=== PATIENT | female | born 1985 | race Asian ===

== ENCOUNTER → 2016-07-30 | Outpatient (CLI) | payer OTHER ==
[~2016-07-30] MED LIST: DOCO1CAP10; OXYC-57 PO; PRENTAB26 PO
[2016-07-30 16:03] LABS: GTGD 50 Grams
[2016-08-03 12:24] LABS: AFP TUMOR MARKER SERUM 56.2 NG/ML (<6.1)
[2016-08-04 13:38] LABS: AFP CONCENTRATION 59.3 NG/ML; AFP MULTIPLE OF MEDIAN 1.76; AFPTS GESTATIONAL AGE 16.4 WEEKS; AFPTS INSULIN DEP DIABETIC? NO; AFPTS MATERNAL WT 153 LBS; HISTORY OF NTD NO; REPEAT SAMPLE? NOT PROVIDED
== END | disposition home or self-care (01) ==
LOC: C.LAB1850 13:54
PROVIDERS: ATTEND Obstetrics & Gynecology
DX: Z34.02 Encounter for supervision of normal first pregnancy, second trimester (principal)

== ENCOUNTER → 2016-08-04 | Outpatient (CLI) | payer OTHER | END | disposition home or self-care (01) | LOC: C.LAB1850 08:36 | PROVIDERS: ATTEND Obstetrics & Gynecology | DX: O28.9 Unspecified abnormal findings on antenatal screening of mother (principal) ==

== ENCOUNTER → 2016-10-19 | Outpatient (CLI) | payer OTHER ==
[2016-10-19 18:28] LABS: URINE APPEARANCE CLEAR (CLEAR); URINE BILIRUBIN NEG (NEG); URINE COLOR YELLOW; URINE EPITHELIAL CELL AUTO >30 /lpf (0-5); URINE NITRITE NEG (NEG); URINE SPECIFIC GRAVITY 1.017 (1.000-1.030); UROBILINOGEN NEG (NEG)
[2016-10-19 18:30] LABS: MANUAL MICROSCOPIC REQUIRED? NO; REVIEW REQ? NO
== END | disposition home or self-care (01) ==
LOC: C.LABSPEC 13:57
PROVIDERS: ATTEND Obstetrics & Gynecology
DX: Z34.03 Encounter for supervision of normal first pregnancy, third trimester (principal)

== ENCOUNTER → 2016-12-16 | Outpatient (CLI) | payer OTHER | END | disposition home or self-care (01) | LOC: C.LABSPEC 15:54 | PROVIDERS: ATTEND Obstetrics & Gynecology | DX: Z34.03 Encounter for supervision of normal first pregnancy, third trimester (principal) ==

== ENCOUNTER → 2016-12-24 | Outpatient (CLI) | payer OTHER ==
[2016-12-24 15:42] LABS: BASO % 0.3 %; BASO ABS # 0.02 K/uL (0-0.2); COMPLETE YES; EOS % 0.4 %; HEMATOCRIT 32.8 % (37-47); IG% 0.3 %; LYMPH % 18.3 %; LYMPH ABS # 1.32 K/uL (1.2-3.4); MEAN CELL VOLUME 86.8 fL (80-100); MEAN CORPUSCULAR HGB CONC 31.1 g/dl (32-36); MEAN PLATELET VOLUME 10.4 fL (7.4-10.4); MONO % 9.6 %; NEUT % 71.1 %; PLATELET COUNT 217 K/uL (130-400); RED BLOOD COUNT 3.78 M/uL (4.2-5.4)
== END | disposition home or self-care (01) ==
LOC: C.LAB1850 14:49
PROVIDERS: ATTEND Obstetrics & Gynecology
DX: O34.29 Maternal care due to uterine scar from other previous surgery (principal)

== ENCOUNTER 2016-12-25 02:52 | Inpatient (IN) | payer OTHER ==
--- NOTE | 2016-12-24 23:42 | History and Physical ---
History & Physical Date Dec 24, 2016. Chief Complaint Scheduled primary section History of Present Illness The patient is a 31yo @ 37 4/7 presenting for scheduled primary section due to history of myomectomy. is complicated by myomectomy 4 weeks prior to gestation. She was recommended by her surgeon to undergo a , and recommendation from [facility] is to deliver by at 37 weeks. also complicated by GDMA1. 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14 in [place] PSH: myomectomy (vertical skin incision) with right ovarian dermoid cystectomy 2015, laparoscopic left oophorectomy Additional History Hepatic Disease: No Endocrine Disorder: No Kidney Disease: No Hypertension: No Heart Disease: No Bleeding Tendencies: No Infectious Diseases: No LMP: 04/06/16 Physical Examination Skin: warm/dry Head: normocephalic Neck: supple Respiratory/Chest: normal breath sounds Cardiovascular: regular rate, rhythm Abdomen / GI: non tender Back: normal inspection Extremities: normal inspection Genitourinary - Female: normal pelvic exam Neurologic/Psych: no motor/sensory deficits Diagnosis 31yo @ 37 4/7 with history of myomectomy Plan of Treatment Plan for primary section. Patient has been counseled in the office on all RBA of surgery, including increased risk of scar tissue and damage to surrounding tissues/organs due to her prior surgeries. She elects to proceed with delivery.
[~2016-12-25] VITALS: Ht 167.6 cm; Wt 84.0 kg
[2016-12-25] VITALS (14 sets, daily range): BP systolic 109–124; BP diastolic 70–77; PULSE 94–96; TEMP 37.3–37.5; O2SAT 95–99; Ht 167.6 cm; Wt 84.0 kg
[2016-12-25] MEDS ORDERED: LACTATED RINGER'S 1000ML 1,000 ML IV SCH ×2 (05:30→08:55)
[2016-12-25] MEDS ORDERED: CITRIC ACID/SODIUM CITRATE 15 ML UDC PO SCH (06:00)
[2016-12-25] MEDS ORDERED: CEFAZOLIN IV 2,000 MG in DEXTROSE 5% 50ML IV SCH (06:00)
[2016-12-25 06:35] LABS: BASO % 0.2 %; BASO ABS # 0.02 K/uL (0-0.2); COMPLETE YES; EOS % 0.6 %; IG% 0.2 %; LYMPH % 21.1 %; MEAN CELL VOLUME 86.8 fL (80-100); MEAN CORPUSCULAR HEMOGLOBIN 26.8 pg (25-34); MEAN CORPUSCULAR HGB CONC 30.9 g/dl (32-36); MEAN PLATELET VOLUME 10.2 fL (7.4-10.4); MONO % 7.3 %; NEUT % 70.6 %; PLATELET COUNT 215 K/uL (130-400); WHITE BLOOD COUNT 8.07 K/uL (4.8-10.8)
[2016-12-25] MEDS ORDERED: DOCO1CAP10 (06:39)
[2016-12-25] MEDS ORDERED: PRENTAB26 PO (06:39)
--- NOTE | 2016-12-25 07:18 | History & Physical Bridge Note ---
H&P Re-Evaluation Bridge Note: I have examined the patient, reviewed the History & Physical and in the interval since the performance of the History & Physical I have noted the following changes of clinical significance: Discussed skin incision with patient - she was deciding between using old vertical scar vs horizontal ( pfannensteil) incision - she elects for pfannensteil.
[2016-12-25] MEDS ORDERED: FENTANYL CITRATE INJ 50 MCG/1 ML 2 ML VIAL ONE (07:27)
[2016-12-25] MEDS ORDERED: MoRPHine SULFATE PF 1 MG/ML 10 ML AMP/VIAL ONE (07:27)
[2016-12-25] MEDS ORDERED: KETOROLAC TROMETHAMINE 30 MG/ML VIAL ONE (08:04)
[2016-12-25] MEDS ORDERED: PHENYLEPHRINE 100MCG/ML 5ML SYR ONE (08:04)
[2016-12-25] MEDS ORDERED: ONDANSETRON INJ 2 MG/ML 2 ML VIAL ONE (08:04)
[2016-12-25] MEDS ORDERED: OXYTOCIN INJ 10 UNITS/ML VIAL ONE ×3 (08:04→08:21)
[2016-12-25] MEDS ORDERED: BENZOCAINE 20% AER SPR 82.5 GM CAN EXT PRN (09:00)
[2016-12-25] MEDS ORDERED: DiphenhydrAMINE HCL 50 MG/ML VIAL IV PRN ×2 (09:00→09:15)
[2016-12-25] MEDS ORDERED: LANOLIN OINT EXT PRN ×2 (09:00)
[2016-12-25] MEDS ORDERED: HYDROCORTISONE ACETATE 25 MG SUPP PR PRN (09:00)
[2016-12-25] MEDS ORDERED: SUPERCREAM 0.870 % 15GM JAR EXT PRN (09:00)
[2016-12-25] MEDS ORDERED: MAGNESIUM HYDROXIDE SUSP 30 ML UDC PO PRN (09:00)
[2016-12-25] MEDS ORDERED: PROMETHAZINE HCL INJ 25 MG in SODIUM CHLORIDE 0.9% 50ML 50 ML IV PRN (09:00)
[2016-12-25] MEDS: SIMETHICONE 80 MG CHEW PO SCH ×4 (09:00→19:57)
--- NOTE | 2016-12-25 09:05 | [facility] Post Operative Brief Note ---
Immediate Operative Summary Operative Date Dec 25, 2016. Pre-Operative Diagnosis PRIMARY SECTION; HX OF MYOMECTOMY Post-Operative Diagnosis SAME Procedure(s) Performed LOW TRANSVERSE SECTION WITH VERTICAL EXTENSION Surgeon DR REDDING Almond Pan Finisher Surgeon(s) DR THEODORE Estimated Blood Loss 600 CC Findings Viable male , apgars 7/9. Anterior uterine fibroid, approx 4cm. Normal appearing right ovary, left surgically absent. Specimens PLACENTA-HOLD CORD BLOOD Drains eng clear yellow Anesthesia spinal Complication(s) None Disposition L&D
[2016-12-25] MEDS ORDERED: NALOXONE HCL INJ 0.08 MG in SYRINGE 1.8 ML IV PRN (09:07)
[2016-12-25] MEDS ORDERED: NALOXONE HCL INJ 1 MG in SODIUM CHLORIDE 0.9% 1000ML 1,000 ML IV PRN (09:07)
[2016-12-25] MEDS ORDERED: SODIUM CHLORIDE 0.9% 1000ML 1,000 ML IV PRN (09:07)
[2016-12-25] MEDS ORDERED: LACTATED RINGER'S 1000ML 500 ML IV PRN (09:07)
--- NOTE | 2016-12-25 09:14 | Medical Student: [facility] ---
Operative Report Operative Date Dec 25, 2016. Pre-Operative Diagnosis Primary section; History of myomectomy Post-Operative Diagnosis Same Procedure(s) Performed Low transverse section with vertical extension Surgeon Dr. Garza Physical Therapy Technician Surgeon(s) Dr. Doe Estimated Blood Loss 600mL Findings Viable male infant with Apgars 7 and 9 at one and five minutes, respectively, was delivered at cephalic presentation. Normal appearing placenta. Normal appearing right ovary and right follopian tube. Absent ovary on right removed by surgical intervention previously. Cord contained 3 vessels. Fluids (cc crystalloids) 1L lactated Ringers Specimens Placenta - hold Cord blood for donation Drains Benitez catheter to bladder Anesthesia Spinal epidural Complication(s) None Disposition L&D Indications Intrauterine at 37 weeks gestational age with a history of recent myotomy (roughly 4 weeks before conception)
[2016-12-25] MEDS ORDERED: MoRPHine SULFATE PF 1 MG/ML 10 ML AMP/VIAL EPI PRN (09:15)
[2016-12-25] MEDS ORDERED: EpHEDrine SULFATE INJ 50 MG/ML AMP IV PRN (09:15)
[2016-12-25] MEDS ORDERED: NALOXONE HCL 0.4 MG/1 ML VIAL/CARP IV PRN (09:15)
[2016-12-25] MEDS ORDERED: PROMETHAZINE HCL INJ 6.25 MG in SODIUM CHLORIDE 0.9% 50ML 50 ML IV PRN (09:15)
[2016-12-25] MEDS ORDERED: MEPERIDINE HCL 25 MG/ML CARP IV PRN (09:15)
[2016-12-25] MEDS ORDERED: KETOROLAC TROMETHAMINE 30 MG/ML VIAL IV. PRN (09:15)
[2016-12-25] MEDS ORDERED: ONDANSETRON INJ 2 MG/ML 2 ML VIAL IV PRN (09:15)
[2016-12-25] MEDS ORDERED: MoRPHine SULFATE 2 MG/ML CARP IV PRN (09:15)
[2016-12-25] MEDS ORDERED: NO NARCOTICS OR SEDATIVES SCH (09:15)
[2016-12-25] MEDS ORDERED: NALBUPHINE HCL INJ 10 MG/ML AMP IV PRN (09:15)
--- NOTE | 2016-12-25 09:18 | [facility] Operative Report ---
Operative Report Operative Date Dec 25, 2016. Pre-Operative Diagnosis PRIMARY SECTION; HX OF MYOMECTOMY Post-Operative Diagnosis SAME Procedure(s) Performed LOW TRANSVERSE SECTION WITH VERTICAL EXTENSION Surgeon DR REDDING Teletype Technician Surgeon(s) DR THEODORE Estimated Blood Loss 600 CC Findings Viable male , apgars 7/9. Anterior uterine fibroid, approx 4cm. Normal appearing right ovary, left surgically absent. Specimens PLACENTA-HOLD CORD BLOOD Drains eng clear yellow Anesthesia spinal Complication(s) None Disposition L&D Indications 37 week gestation, h/o myomectomy 4 weeks prior to . [facility] recommendation for delivery by at 37 weeks. Description of Procedure The patient was seen in the L&D room prior to procedure. Surgery was discussed , risks/benefits/alternatives reviewed. She elected to proceed with surgery. Informed consent had previously been obtained under no duress in the office. All questions were answered. Patient voiced desire for low horizontal skin incision. The patient was taken to the operating room where spinal anesthesia was introduced. She was prepared and draped in the usual sterile fashion. Adequate anesthesia was confirmed. Time-out was confirmed. The pfannensteil skin incision was made with a scalpel and carried through to the underlying layer of the fascia. Fascia was knicked at midline and this incision was extended bilaterally with sharp and blunt dissection. The superior aspect of the fascial incision was grasped with Tobias clamps x 2, elevated off the underlying rectus abdominus muscles, and dissected bluntly and sharply. In a similar fashion, the inferior aspect of the incision was dissected. The rectus abdominus muscles and peritoneum were at midline and bluntly dissected. Bladder blade was placed, bladder flap created with metzenbaum scissors. The bladder blade was replaced, and the low transverse uterine incision was made with the scalpel with assistance of Allis clamp tenting. The uterine incision was extended laterally. Attempt was made to deliver the baby from cephalic presentation with assistance of Kiwi vacuum to help flex the head. This was unsuccessful, and the uterine incision was extended in a T- shape carefully using bandage scissors. This allowed the to deliver head , followed by anterior then posterior shoulder. No nuchal cord was noted. The uterus was exteriorized, and the vertical segment of the hysterotomy incision was reapproximated with 0-vicryl in 2 layers. The horizonal hysterotomy incision was then reapproximated in a running locked stitch with a second imbricating layer. Posterior uterus was inspected and normal. The uterus was then returned to the abdomen. Excellent hemostasis was noted. Gutters were cleared of clots and debris. The fascia was reapproximated with 0-vicryl in a running stitch. The subcutaneous tissue was irrigated. 2-0 plain gut suture was used to reapproximate subcutaneous space. The skin was reapproximated with 4-0 vicryl in a running subcuticular stitch. Steri strips and bandage were applied. The patient and baby tolerated the procedure well and were taken to recover in L &D in stable and good condition. Sponge, instrument, and needle counts were correct x 2 at the conclusion of the case. I attest to the content of the Intraoperative Record and any orders documented therein. Any exceptions are noted below.
--- NOTE | 2016-12-25 10:29 | Anesthesiology Progress Note ---
Anesthesia Post Op Note Date & Time Dec 25, 2016 at 10:29 Notes Mental Status: alert / awake / arousable, participated in evaluation Pt Amnestic to Procedure: Yes Nausea / Vomiting: adequately controlled Pain: adequately controlled Airway Patency, RR, SpO2: stable & adequate BP & HR: stable & adequate Hydration State: stable & adequate Anesthetic Complications: no major complications apparent
[2016-12-25] MEDS ORDERED: OXYTOCIN INJ 30 UNITS in LACTATED RINGER'S 1000ML 1,000 ML IV SCH (11:30)
[2016-12-25] MEDS: DOCUSATE SODIUM 100 MG CAP PO SCH (19:57)
[2016-12-26] VITALS (9 sets, daily range): BP systolic 108–128; BP diastolic 69–86; PULSE 87–105; TEMP 36.8–37.7; O2SAT 96–97
[2016-12-26] MEDS ORDERED: KETOROLAC TROMETHAMINE 30 MG/ML VIAL IV. PRN (02:00)
[2016-12-26] MEDS ORDERED: ONDANSETRON INJ 2 MG/ML 2 ML VIAL IV PRN (02:00)
[2016-12-26] MEDS ORDERED: OXYCODONE/ACETAMINOPHEN 5-325 TAB PO PRN (02:00)
[2016-12-26] MEDS ORDERED: DC INTRASPINAL MORPHINE ONE (02:00)
--- NOTE | 2016-12-26 06:29 | OB/GYN Progress Note ---
FORK TRUCK OPERATOR Progress Note Date of Service Dec 26, 2016. Subjective conversation w/ patient, conversation w/ family, physical exam, chart review, lab review Ambulation: ambulating normally Voiding: no voiding problems Passing Gas: Yes (No BM yet) Diet Tolerance: Clear Liquids (including jello) Lochia: Small Feeding Type: Breast Feeding Pain: Says minimal Review of Systems Constitutional: No fever, No chills Respiratory: No cough, No shortness of breath Cardiac: No chest pain Abdomen: No nausea, No vomiting, No diarrhea Female : No dysuria Objective Vital Signs Date Time Temp Pulse Resp B/P (MAP) Pulse Ox O2 Delivery O2 Flow Rate FiO2 12/26/16 04:15 37.0 87 18 108/69 (82) 96 Room Air 12/26/16 02:00 18 97 12/26/16 01:00 18 96 12/26/16 00:00 18 96 12/25/16 23:10 95 Room Air 12/25/16 23:10 37.5 96 20 109/71 (84) 95 Room Air 12/25/16 23:00 20 95 12/25/16 22:00 18 96 12/25/16 21:00 18 97 12/25/16 20:15 37.5 94 20 115/70 (85) 98 Room Air 12/25/16 20:00 20 99 12/25/16 19:00 18 98 12/25/16 17:30 20 98 12/25/16 16:30 20 95 12/25/16 15:30 18 97 12/25/16 15:05 37.3 96 16 116/77 (90) 97 Room Air 12/25/16 15:05 97 Room Air 12/25/16 14:30 16 99 12/25/16 13:30 18 98 12/25/16 12:30 37.5 95 16 124/76 (92) 98 Room Air 12/25/16 12:30 98 Room Air 12/25/16 12:30 18 98 12/25/16 12:30 98 Room Air Physical Exam General Appearance: WELL-APPEARING, WD/WN, NO APPARENT DISTRESS Respiratory/Chest: lungs clear, normal breath sounds Cardiovascular: regular rate, rhythm, no murmur Abdomen: normal bowel sounds, non tender, soft Incision Description: Clean, Dry & Intact (bandage) Laboratory Results Last 24 Hours Test 12/26/16 06:00 Assessment and Plan Post-Op Day Number: 1 Continue Routine Care: Tereso Liu 31yo s/p scheduled (for prior myomectomy), now PPD #1. - Blood type A pos. GBS negative. Rubella immune. - Vital signs reviewed and stable. - Pain controlled so far without PO meds. - No leg swelling or tenderness on calf palpation. Encourage ambulation. - Encourage breast feeding. Pt requests assistance with same. - Hemoglobin 10.2 Bleeding has improved. Continue to monitor clinically. - Continue routine post delivery care. - Pt agreed with above plan, all current questions answered. Rojelio Montalvo MD, PGY1 Merchandise Team Manager Tracking Resident Involvement: Resident Care Provided Care Provided: OB Delivery (morning rounds)
[2016-12-26 07:25] LABS: HEMATOCRIT 27.9 % (37-47); MEAN CELL VOLUME 85.3 fL (80-100); MEAN CORPUSCULAR HEMOGLOBIN 26.6 pg (25-34); MEAN CORPUSCULAR HGB CONC 31.2 g/dl (32-36); PLATELET COUNT 216 K/uL (130-400); RED BLOOD COUNT 3.27 M/uL (4.2-5.4)
[2016-12-26 07:27] LABS: BASO % 0.2 %; BASO ABS # 0.02 K/uL (0-0.2); COMPLETE YES; EOS % 0.2 %; IG% 0.1 %; LYMPH ABS # 1.13 K/uL (1.2-3.4); MONO % 6.9 %; NEUT % 80.6 %
[2016-12-26] MEDS: DOCUSATE SODIUM 100 MG CAP PO SCH ×2 (08:23→19:32)
[2016-12-26] MEDS: SIMETHICONE 80 MG CHEW PO SCH ×4 (08:23→19:32)
[2016-12-26] MEDS: OXYCODONE/ACETAMINOPHEN 5-325 TAB PO PRN ×3 (13:14→23:07)
[2016-12-26] MEDS ORDERED: BISACODYL 5 MG TABEC PO ONE (22:00)
[2016-12-27 07:22] VITALS: BP 124/77; PULSE 78; TEMP 37; O2SAT 97
[2016-12-27] MEDS: SIMETHICONE 80 MG CHEW PO SCH ×4 (07:42→19:39)
[2016-12-27] MEDS: OXYCODONE/ACETAMINOPHEN 5-325 TAB PO PRN ×4 (07:43→23:04)
[2016-12-27] MEDS: DOCUSATE SODIUM 100 MG CAP PO SCH ×2 (07:43→19:39)
--- NOTE | 2016-12-27 08:58 | Progress Note ---
Subjective Dec 27, 2016. Subjective conversation w/ patient Ambulation: ambulating normally Voiding: no voiding problems Passing Gas: Yes Diet Tolerance: Regular Diet Lochia: Moderate Feeding Type: Breast Feeding Pain: controlled Review of Systems Constitutional: No problem reported Respiratory: No problem reported Cardiac: No problem reported Breast: No problem reported Abdomen: No problem reported Female : No problem reported Objective Vital Signs Date Time Temp Pulse Resp B/P (MAP) Pulse Ox O2 Delivery O2 Flow Rate FiO2 12/27/16 07:22 37.0 78 20 124/77 (93) 97 Room Air 12/26/16 23:10 37.0 89 20 128/86 (100) 96 Room Air 12/26/16 23:10 96 Room Air 12/26/16 17:30 37.3 12/26/16 15:30 37.7 105 20 108/69 (82) 12/26/16 14:50 37.7 Physical Exam General Appearance: WELL-APPEARING, NO APPARENT DISTRESS Respiratory/Chest: normal breath sounds Cardiovascular: regular rate, rhythm Abdomen: non tender, soft Fundus: Firm Incision Description: Clean, Dry & Intact Extremities: normal inspection Assessment and Plan Post-Op Day#: 2 Continue Routine Care: Doing well postoperatively. Ambulating well. Continuing to work with . Anticipate discharge tomorrow.
[2016-12-27 16:25] VITALS: BP 124/85; PULSE 84; TEMP 37
[2016-12-27 23:10] VITALS: BP 128/80; PULSE 74; TEMP 37; O2SAT 97
--- NOTE | 2016-12-28 06:27 | OB/GYN Progress Note ---
AURICULAR ACUPUNCTURIST Progress Note Date of Service Dec 28, 2016. Subjective conversation w/ patient, conversation w/ family, physical exam, chart review, lab review Ambulation: ambulating normally Voiding: no voiding problems Passing Gas: Yes (No BM yet) Feeding Type: Breast Feeding (says supplementing with bottle feeding, pt concerns about breast milk production) Pain: Denies Review of Systems Constitutional: No fever, No chills Respiratory: No cough, No shortness of breath Cardiac: No chest pain Abdomen: + constipation, No nausea, No vomiting, No diarrhea Female : No dysuria Objective Vital Signs Date Time Temp Pulse Resp B/P (MAP) Pulse Ox O2 Delivery O2 Flow Rate FiO2 12/27/16 23:10 37.0 74 18 128/80 (96) 97 Room Air 12/27/16 23:10 97 Room Air 12/27/16 16:25 Room Air 12/27/16 16:25 37.0 84 20 124/85 (98) Room Air 12/27/16 07:22 37.0 78 20 124/77 (93) 97 Room Air Physical Exam General Appearance: WELL-APPEARING, WD/WN, NO APPARENT DISTRESS Respiratory/Chest: lungs clear, normal breath sounds Cardiovascular: regular rate, rhythm Abdomen: normal bowel sounds, + tenderness (mild RLQ ttp over fundus) Fundus: Firm, Tender, Relation to Umbilicus (at umbilicus) Extremities: normal range of motion, normal inspection, no pedal edema, no calf tenderness Assessment and Plan Post-Op Day Number: 3 Continue Routine Care: 31yo s/p scheduled (for prior myomectomy), now PPD #3. - Blood type A pos. GBS negative. Rubella immune. - Vital signs reviewed and stable. - Pain controlled with percocet. - No leg swelling or tenderness on calf palpation. Encourage ambulation. - Pt and state have started some bottle supplemental feeding due to concerns about breast milk production. Will re-address at rounds this AM. - Hemoglobin 10.2, 8.7. Continue to monitor clinically. - Continue routine post delivery care. - Pt agreed with above plan, all current questions answered. Rojelio Montalvo MD, PGY1 [employer] Lead Physician Supervision Note: I was present with Dr. Montalvo during the history and exam. I discussed the case with the resident and agree with the findings and plan as documented in the note. Any exceptions or clarifications are listed here: POD#3 doing well - discharge to home today. Discharge instructions discussed. RTO 6w. Documented By: Vivien Garza Resident Tracking Resident Involvement: Resident Care Provided Care Provided: OB Delivery (morning rounds)
[2016-12-28] MEDS: OXYCODONE/ACETAMINOPHEN 5-325 TAB PO PRN ×3 (06:44→17:26)
[2016-12-28] MEDS ORDERED: OXYC-57 PO (07:31)
--- NOTE | 2016-12-28 07:39 | Discharge Instructions ---
Discharge Instructions Date of Service Dec 28, 2016. Admission Reason for Admission: Scheduled Section Discharge Discharge Diagnosis / Problem: Recovery from Discharge Goals Goal(s): Routine recovery after Medications Continue Dispensed Medications: supercream, dermaplast, tucks, lansinoh Activity Recommendations Activity Limitations: per Instructions/Follow-up section . Instructions / Follow-Up Instructions / Follow-Up ACTIVITY RECOMMENDATIONS: * Gradual return to full activity over the next 2-3 weeks. * No lifting - nothing heavier than baby over the next 2-3 weeks. * Do not engage in vigorous exercise, sexual activity or sports until cleared by your physician. * Do not drive or operate any motorized equipment until cleared by your physician. * You may shower/bathe daily. MEDICATIONS: For discomfort or pain, you may use Acetaminophen (Tylenol), Ibuprofen (Advil), or Naproxen (Aleve) following the package directions. For constipation you may use Colace following the package directions. BREAST CARE: If you are not breast feeding: * Wear a supportive bra 24 hours a day for one to two weeks. * Avoid stimulating your breasts and nipples as much as possible during the first few weeks after delivery. * When taking a shower, have the warm water hit your back, not breasts. * When your breasts feel full, apply ice packs. Usually three to four times a day helps ease the discomfort. * Take a mild pain medication (Tylenol / Motrin) when you are uncomfortable. If breast feeding: * Use breast milk to lubricate nipples. Lansinoh cream may be used for sore nipples. You do not need to remove cream prior to breast feeding. If using a different brand of cream, check the label for directions regarding removal of cream prior to nursing. * Wear a supportive bra. * If having problems with breasts or breast feeding, call a supply chain consultant or your health care provider. SPECIAL CARE INSTRUCTIONS: When you are discharged from the hospital, it is important for you to follow the instructions listed below: * During the first week at home, you should be able to care for yourself and your baby. In addition, the usual light household activities are encouraged. * Limit your activities to the way you feel. Do not try to clean the house or move furniture. Be sensible. * If you actively engage in sports and have done so up until the time of your delivery, you may resume these activities as soon as you feel able. This may take up to one month or even longer. Use good judgment. * Continue to take your vitamins for at least six weeks after the of your baby. * Your diet need not be limited unless you were on a special diet before your delivery. Breast-feeding mothers need around 2500 calories per day and at least 64-80 ounces of fluid per day (8 to 10 glasses). * You should eat foods from the four major food groups. Crash diets or fad diets are to be avoided. Eating lean meats, fresh fruits and vegetables, low-fat dairy products, high fiber foods and a regular exercise program, will help you get back to your pre- weight without putting your health at risk. * Constipation is sometimes a problem after delivery. Take a mild laxative as needed. If breast feeding, Milk of Magnesia is acceptable to use. You may use a suppository or Fleets enema. * A daily shower or tub bath is suggested. Wash incision daily with warm soapy water and pat dry. It doesn't need to be covered unless drainage is present. * A bloody vaginal discharge will usually continue until around four weeks . A small amount of bleeding may continue for as long as six weeks. Vaginal discharge changes from the bright red bleeding after delivery to pink then brownish and finally yellowish-pink before becoming white and disappearing. * Bleeding may increase with activity. Your first period may come in 4-8 weeks. If you are breast feeding, your period may be delayed even longer. * [place] (sex) can begin whenever both you and your partner feel comfortable and do not have any form of genital infection. It is recommended that you wait at least six weeks for internal and external healing to occur. If you have questions, please talk to your health care practitioner. A condom should be used to prevent infection and . * Foreplay, gentle intercourse and lubrication is very important the first several times to prevent pain. A water-based lubricant such as K-Y jelly or Astroglide may be used. * If you have RH negative blood and your baby is RH positive, you will receive RHOGAM by injection prior to discharge. The nurse will give you a card to keep with you that has the date and place that you received RHOGAM after delivery. * During your care, you had a Rubella screen done to check for the presence of rubella antibodies in your blood. If your test was negative, you will receive a Rubella vaccine prior to discharge. This vaccine may cause a fever, soreness at the injection site and flu-like symptoms. If these symptoms persist, notify your health care practitioner. is not advised for one month after a Rubella vaccine. * Verbalizes understanding of car seat law as reviewed with patient nursing. * Car Seat hand-out given and reviewed with patient by nursing. * Shaken baby information reviewed with patient by nursing. Call you doctor if: * Heavy bleeding (saturating several pads an hour) or passing clots the size of your fist. * A fever >101 degrees F (38.3 degrees C) on two occasions four hours apart and /or chills. * Unusual pain in the pelvic or vaginal areas. * Call the doctor for any increased redness, drainage or swelling around the incision and any pain unrelieved by prescribed pain medication. * "Baby Blues" lasting longer than two weeks. If you have any questions or concerns, call your health care practitioner at . FOLLOW UP VISIT: * Please call the office at to schedule a 6 week examination. It is important you keep this appointment. It is important for you to make arrangements for either yearly or twice yearly check-ups thereafter. Current Hospital Diet Patient's current hospital diet: Regular OB Diet Discharge Diet Recommended Diet: Regular OB Diet Procedures Procedures Performed: LOW TRANSVERSE SECTION WITH VERTICAL EXTENSION Pending Studies Studies pending at discharge: no Medical Emergencies . Who to Call and When: Medical Emergencies: If at any time you feel your situation is an emergency, please call [phone] immediately. . Non-Emergent Contact Non-Emergency issues call your: Fourchette Sewer . . "Provider Documentation" section prepared by Rojelio Montalvo. . VTE Core Measure Inpt VTE Proph given/why not?: SCD's
[2016-12-28 08:00] VITALS: BP 128/84; PULSE 85; TEMP 36.7
[2016-12-28] MEDS: DOCUSATE SODIUM 100 MG CAP PO SCH ×2 (08:45→19:37)
[2016-12-28] MEDS: SIMETHICONE 80 MG CHEW PO SCH ×4 (08:45→19:37)
[2016-12-28 15:00] VITALS: BP 130/81; PULSE 84; TEMP 37.5; O2SAT 96
[2016-12-28 15:30] VITALS: BP 135/89; PULSE 81; TEMP 37.1
[2016-12-28 19:30] VITALS: BP 125/82
[2016-12-29 00:20] VITALS: BP_SYST 114; BP_SYST 132; BP_DIAS 80; BP_DIAS 94; PULSE 76; TEMP 37; O2SAT 96
--- NOTE | 2016-12-29 06:27 | OB/GYN Progress Note ---
SUPPLY CHAIN DEVELOPMENT MANAGER Progress Note Date of Service Dec 29, 2016. Subjective conversation w/ patient, conversation w/ family, physical exam, chart review, lab review Ambulation: ambulating normally Voiding: no voiding problems Passing Gas: Yes (No BM yet) Diet Tolerance: Regular Diet Lochia: Small Feeding Type: Breast Feeding (and bottle supplementation) Pain: Minimal cramping mostly with breast feeding Notes: Denies difficulty ambulating or any left leg pain. Review of Systems Constitutional: No fever, No chills Respiratory: No cough, No shortness of breath Cardiac: No chest pain Abdomen: No nausea, No vomiting, No diarrhea Female : No dysuria Objective Vital Signs Date Time Temp Pulse Resp B/P (MAP) Pulse Ox O2 Delivery O2 Flow Rate FiO2 12/29/16 00:20 96 Room Air 12/29/16 00:20 37.0 76 18 132/94 (107) 96 Room Air 114/80 (91) 12/28/16 19:30 125/82 (96) 12/28/16 15:30 37.1 81 20 135/89 (104) Room Air 12/28/16 15:30 Room Air 12/28/16 15:00 37.5 84 18 130/81 (97) 96 Room Air 12/28/16 08:35 Room Air 12/28/16 08:00 36.7 85 16 128/84 (99) Room Air Physical Exam General Appearance: WELL-APPEARING, WD/WN, NO APPARENT DISTRESS, uncomfortable Respiratory/Chest: lungs clear, normal breath sounds Abdomen: normal bowel sounds, non tender, soft Fundus: Firm, Relation to Umbilicus (approx two down) Incision Description: Clean, Dry & Intact ((incision - steristrips in place, bandage off, no erythema)) Extremities: normal range of motion, non-tender, no calf tenderness (No ttp (B) . No pain on passive or active ankle movement (B).), + swelling (Left 1+ edema in calf & ankle, Right no edema) Assessment and Plan Post-Op Day Number: 4 Continue Routine Care: Resident Physician Supervision Note: I was present with Dr. Montalvo during the history and exam. I discussed the case with the resident and agree with the findings and plan as documented in the note. Any exceptions or clarifications are listed here: [None] Documented By: Donna Melgar 31yo s/p scheduled (for prior myomectomy), now PPD #4. - Blood type A pos. GBS negative. Rubella immune. - Vital signs reviewed and stable. - Pain controlled with percocet. - Pt had overnight concern about left leg. Presently s/s not overt for DVT. Discussed things to watch for with pt and return to care precautions. Encouraged ambulation. - No BM yet. Still passing gas, no abd pain or N/V. Discussed med options to help with BM. - Much improved breast feeding success. Continued to encourage. - Hemoglobin 10.2, 8.7. Continue to monitor clinically. - Continue routine post delivery care. - Pt agreed with above plan, all current questions answered. Rojelio Montalvo MD, PGY1 Web Art Director Tracking Resident Involvement: Resident Care Provided Care Provided: OB Delivery (morning rounds)
[2016-12-29 07:37] VITALS: BP 125/89; PULSE 72; TEMP 37.1; O2SAT 98
[2016-12-29] MEDS: OXYCODONE/ACETAMINOPHEN 5-325 TAB PO PRN (08:00)
[2016-12-29] MEDS: SIMETHICONE 80 MG CHEW PO SCH (08:00)
[2016-12-29] MEDS: DOCUSATE SODIUM 100 MG CAP PO SCH (08:00)
[2016-12-29 15:50] VITALS: BP_DIAS 89; PULSE 72; TEMP 37.1
--- NOTE | 2017-01-11 00:09 | Discharge Summary ---
Discharge Summary Date of Service Jan 11, 2017. Discharge Summary Admission Date: Dec 25, 2016 at 05:35 Discharge Date: Dec 29, 2016 Discharge Disposition: Home Principal Diagnosis: scheduled section Procedures: Low transverse section with vertical extension Consultations: anesthesia Hospital Course Total Time Spent: Less than 30 minutes This includes examination of the patient, discharge planning, medication reconciliation, and communication with other providers. Discharge Instructions Please refer to the electronic Patient Visit Report (Discharge Instructions) for additional information. Follow-Up office 6w
== END 2016-12-29 15:50 | disposition home or self-care (01) | DRG 766 ==
LOC: C.LD 05:35 → EDSTATUS 07:30 → C.OBG 13:07
PROVIDERS: ADMIT Obstetrics & Gynecology; ATTEND Obstetrics & Gynecology
PROC: 10D00Z1 Extraction of Products of Conception, Low, Open Approach (ICD-10-PCS; principal; 2016-12-25 07:30)
DX: O34.29 Maternal care due to uterine scar from other previous surgery (principal); Z3A.37 37 weeks gestation of pregnancy; Z37.0 Single live birth